=== PATIENT | female | born 1985 | race Asian ===

== ENCOUNTER 2016-10-13 17:31 | Emergency (ER) | payer OTHER, MEDICAID ==
[~2016-10-13] VITALS: Ht 160 cm; Wt 59.0 kg
[~2016-10-13 17:31] MED LIST: ANUSOL-HC2.5% RC; ANUSOL-HC25 M1 RC; DULCOLAX10 M1 RC; MOTRIN800 MG PO; PNV-DHA1 SGL PO
[2016-10-13 17:38] VITALS: BP 125/82
--- NOTE | 2016-10-13 18:07 | NUR ---
Patient ambulated to bed 02.
--- NOTE | 2016-10-13 18:18 | NUR ---
PT PRESENTS TO ER FOR EVALUATION OF POSITIVE [place] SKIN TEST. PT DENIES ANY OTHER MEDICAL HX.PT DENIES NIGHT SWEATS/LOW GRADE FEVER/NIGHT SWEATS AND LOSS OF WEIGHT;PT DENIES ANY PAIN AT THIS MOMENT;NO ACUTE DISTRESS NOTED AT THIS TIME;PT AAOX4;HOB ELEVATED;NEEDS ATTENDED;MD MADE AWARE OF PT'S CONDITION.
--- NOTE | 2016-10-13 18:20 | NUR ---
CUSTOMER SUPPORT REPRESENTATIVE AT BEDSIDE.
--- NOTE | 2016-10-13 18:59 | NUR ---
PT LYING ON BED COMFORTABLY;NO ACUTE DISTRESS NOTED AT THIS TIME.WILL CONTINUE TO MONITOR PT.
--- NOTE | 2016-10-13 19:06 | NUR ---
PT AMBULATED TO RESTROOM;NO ACUTE DISTRESS NOTED AT THIS TIME.WILL CONTINUE TO MONITOR PT.
--- NOTE | 2016-10-13 19:07 | NUR ---
DR GERMAN AT BEDSIDE
--- NOTE | 2016-10-13 19:17 | NUR ---
Pt report given to VIBHA VEGA. Transfer of care at this time.
[2016-10-13 19:40] VITALS: BP 110/75
--- NOTE | 2016-10-13 19:40 | NUR ---
Patient discharged with v/s stable. Written and verbal after care instructions given and explained. Patient alert, oriented and verbalized understanding of instructions. Ambulatory with steady gait. All questions addressed prior to discharge. ID band removed. Patient advised to follow up with PMD. Rx of HYDROCORTISONE 2.5% CREAM given. Patient educated on indication of medication including possible reaction and side effects. Opportunity to ask questions provided and answered.
== END 2016-10-13 19:40 | disposition home or self-care (01) ==
LOC: MED 17:31
DX: R76.11 Nonspecific reaction to tuberculin skin test without active tuberculosis (principal)